=== PATIENT | female | born 1995 | race Asian ===

== ENCOUNTER 2024-05-01 00:21 | Emergency (ER) | payer OTHER ==
[~2024-05-01] VITALS: Ht 162.6 cm; Wt 81.6 kg
[2024-05-01 00:37] VITALS: BP_SYST 141; PULSE 90; RESP 16; TEMP 97.6; O2SAT 98
[2024-05-01 04:00] VITALS: BP_SYST 131; PULSE 90; RESP 16; TEMP 97.6; O2SAT 98
== END 2024-05-01 04:00 | disposition home or self-care (01) ==
LOC: SED 00:21
DX: H33.8 Other retinal detachments (principal)
CPT/HCPCS: 99284